=== PATIENT | female | born 1965 | race Caucasian/White ===

== ENCOUNTER → 2018-01-21 | Outpatient (CLI) | payer BC ==
[~2018-01-21] MED LIST: NORCO 325 MG-51 TAB PO; WELLBUTRIN 100100 MG PO
== END ==
LOC: COL.RAD 07:20
DX: H11.33 Conjunctival hemorrhage, bilateral (principal); Z85.3 Personal history of malignant neoplasm of breast; Z85.118 Personal history of other malignant neoplasm of bronchus and lung; Z17.0 Estrogen receptor positive status [ER+]
CPT/HCPCS: A9585

== ENCOUNTER → 2018-04-17 | Outpatient (CLI) | payer BC | LOC: COL.RAD 07:50 | DX: F45.8 Other somatoform disorders (principal); R22.1 Localized swelling, mass and lump, neck | CPT/HCPCS: A9585 ==

== ENCOUNTER → 2021-06-06 | Outpatient (CLI) | payer BC | LOC: MC.RAD 08:49 | DX: N63.20 Unspecified lump in the left breast, unspecified quadrant (principal); Z85.3 Personal history of malignant neoplasm of breast; Z90.12 Acquired absence of left breast and nipple; Z98.82 Breast implant status ==